=== PATIENT | female | born 2000 | race Hispanic/Latino ===

== ENCOUNTER 2018-11-12 13:07 | Emergency (ER) | payer OTHER ==
--- OUTSIDE RECORDS SUMMARY | 2018-11-12 13:10 | XMS REPORT ---
:2000 [facility] Address [address] [place] [address] Dr. Yo [address] [place] [id number] Care Team Providers Name Role Phone Unavailable Unavailable Unavailable Problems This patient has no known problems. Allergies, Adverse Reactions, Alerts This patient has no known allergies or adverse reactions. Medications This patient has no known medications.
[2018-11-12] MEDS ORDERED: NA CHLORIDE 0.9% 1,000 ML ONE (15:09)
[2018-11-12] MEDS ORDERED: ONDANSETRON 4 MG/2 ML VIAL ONE (15:09)
[2018-11-12] MEDS ORDERED: MORPHINE 2 MG/ML SYR ONE (15:09)
--- NOTE | 2018-11-12 15:09 | RAD REPORT ---
EXAM DESCRIPTION: CT - Head Brain Wo Cont - 11/12/2018 2:59 pm CLINICAL HISTORY: HEADACHE Drowsiness, blurry vision COMPARISON: HEAD BRAIN W O CONTRAST dated 07/20/2011 TECHNIQUE: All CT scans are performed using dose optimization technique as appropriate and may inclu de automated exposure control or mA/KV adjustment according to patient size. FINDINGS: No intracranial hemorrhage, hydrocephalus or extra-axial fluid collection.No areas of brai n edema or evidence of midline shift. Moderate opacification of the sphenoid sinus. The remainder of the paranasal sinuses and mastoids are clear. The calvarium is intact. IMPRESSION: No acute intracranial abnormality. Moderate sphenoid sinusitis.
[2018-11-12 15:43] LABS: Absolute Lymphocytes (CBC) 1.2 K/uL (0.7-4.9); Absolute Monocytes 0.9 K/uL (0.1-1.3); Absolute Neutrophil 9.6 K/uL (1.8-8.0); Basophils % 0.4 % (0-1.3); Hematocrit 34.5 % (36.0-45.0); MPV 9.1 fL (7.6-11.3); Monocytes % 7.4 % (3.3-12.3); RBC Red Blood Cell Count 4.02 M/uL (3.86-4.86)
[2018-11-12 16:00] LABS: ALT/SGPT 19 U/L (12-78); AST/SGOT 8 U/L (15-37); Albumin 2.9 g/dL (3.4-5.0); Alkaline Phosphatase 85 U/L (45-117); BUN Blood Urea Nitrogen 9 mg/dL (7-18); Bicarbonate 25 mmol/L (21-32); Bilirubin Total 0.2 mg/dL (0.2-1.0); Glucose Level 91 mg/dL (74-106); Potassium 3.5 mmol/L (3.5-5.1); Protein, Total 7.2 g/dL (6.4-8.2); Sodium Level 140 mmol/L (136-145)
--- NOTE | 2018-11-12 16:05 | ER ---
Nurse's Notes [facility] Name: Ayala Burnett Age: 18 yrs Sex: Female : 2000 Arrival Date: 11/12/2018 Time: 13:10 Bed 14 Private MD: Diagnosis: Headache; related conditions, unspecified, second trimester;Acute sinusitis Presentation: 11/12 13:41 Presenting complaint: Patient states: frontal headache radiating to back of head that aa5 began yesterday. Pt also reports intermittent dizziness and blurry vision. Pt states "I have a 1 year old so I don't get much sleep". Pt reports being 21 weeks . Transition of care: patient was not received from another setting of care. Onset of symptoms was November 2018. Risk Assessment: Do you want to hurt yourself or someone else? Patient reports no desire to harm self or others. Initial Sepsis Screen: Does the patient meet any 2 criteria? No. Patient's initial sepsis screen is negative. Does the patient have a suspected source of infection? No. Patient's initial sepsis screen is negative. Care prior to arrival: None. 13:41 Method Of Arrival: Ambulatory aa5 13:41 Acuity: RENAY 3 aa5 Triage Assessment: 15:00 Headache History: Denies prior headaches. General: Appears in no apparent distress. ls4 Behavior is calm, cooperative. Pain: Pain currently is 8 out of 10 on a pain scale. Pain began 1 day ago. Also complains of nausea. Neuro: Oriented to person, place, time, situation, Bleaching Supervisor are equal bilaterally Moves all extremities. Gait is steady, Speech is normal, Facial symmetry appears normal, Pupils are PERRLA, Reports dizziness. Respiratory: Airway is patent Respiratory effort is even, unlabored, Respiratory pattern is regular. GI: No deficits noted. : No deficits noted. Derm: No deficits noted. Musculoskeletal: No deficits noted. 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 - Social history:: Smoking status: Patient/guardian denies using tobacco. - Ebola Screening: : No symptoms or risks identified at this time. - Family history:: not pertinent. Screenin:47 Abuse screen: Denies threats or abuse. Denies injuries from another. Nutritional ls4 screening: No deficits noted. Tuberculosis screening: No symptoms or risk factors identified. Fall Risk None identified. Assessment: 13:50 General: Appears in no apparent distress. Behavior is calm, cooperative. ls4 13:50 Pain: Pain currently is 8 out of 10 on a pain scale. Noted to be smiling, playing with ls4 her chiled bouncing on lap. pt is in chair while is on hospital bed. pt in nad. Neuro: Level of Consciousness is awake, alert, obeys commands, Reports headache. Cardiovascular: No deficits noted. Respiratory: No deficits noted. GI: No deficits noted. : No deficits noted. Derm: No deficits noted. Musculoskeletal: No deficits noted. Vital Signs: 13:44 BP 115 / 66; Pulse 94; Resp 18 S; Temp 98.2(TE); Pulse Ox 100% on R/A; Weight 61.23 kg aa5 (R); Height 4 ft. 11 in. (149.86 cm) (R); Pain 8/10; 15:00 BP 112 / 70; Pulse 78; Resp 18; Temp 98.4(O); Pulse Ox 99% on R/A; Pain 3/10; ls4 16:44 BP 118 / 60; Pulse 74; Resp 16; Temp 98.8; Pulse Ox 99% on R/A; Pain 3/10; ls4 13:44 Body Mass Index 27.27 (61.23 kg, 149.86 cm) aa5 Vitals: 16:21 Heart Tones: 160. mh5 ED Course: 13:10 Patient arrived in ED. mr 13:41 Arm band placed on. aa5 13:43 Triage completed. aa5 14:00 Mani Capellan MD is Attending Physician. [facility] 14:51 Maryana Wang, ANNELISE is Primary Nurse. ls4 15:00 Patient has correct armband on for positive identification. Placed in gown. Bed in low ls4 position. Call light in reach. Side rails up X 1. Pulse ox on. NIBP on. 15:03 CT Head Brain wo Cont: shield In Process Unspecified. EDMS 15:47 Urine Culture Sent. 5 15:47 No provider procedures requiring assistance completed. ls4 16:04 Keagan Navarro MD is Referral Physician. [facility] 16:15 Inserted saline lock: 20 gauge in right. ls4 16:22 Urine Culture Sent. 5 16:47 IV discontinued, intact, bleeding controlled, No redness/swelling at site. Pressure ls4 dressing applied. Administered Medications: 15:24 Not Given (Patient Refused): morphine 2 mg IVP once ls4 15:25 Drug: Zofran 4 mg Route: IVP; Site: right antecubital; ls4 16:00 Follow up: Response: No adverse reaction; Marked relief of symptoms ls4 15:26 Drug: NS 0.9% 1000 ml Route: IV; Rate: 1 bolus; Site: right antecubital; ls4 16:20 Follow up: IV Status: Completed infusion; IV Intake: 1000ml ls4 16:14 Drug: Rocephin - (cefTRIAXone) 1 grams Route: IVPB; Infused Over: 10 mins; Site: right ls4 antecubital; 16:40 Follow up: Response: No adverse reaction; IV Status: Completed infusion; IV Intake: 83nhyh3 16:14 Drug: Augmentin 875 mg Route: PO; ls4 16:48 Follow up: Response: No adverse reaction ls4 Intake: 16:20 IV: 1000ml; Total: 1000ml. ls4 16:40 IV: 10ml; Total: 1010ml. ls4 Outcome: 16:04 Discharge ordered by . ghada 16:47 Discharged to home ambulatory, with family. ls4 16:47 Condition: stable 16:47 Discharge instructions given to patient, family, Instructed on discharge instructions, follow up and referral plans. no drinking with medication, no driving heavy equipment, medication usage, safety practices, Demonstrated understanding of instructions, medications, Prescriptions given X 4. 16:56 Patient left the ED. ls4 Signatures: Dispatcher [employer] EDMS Mani Capellan MD MD cha Rivera, Mary mr Calderon, Audri, ANNELISE RN Shameka Leung Lisa, RN RN ls4 Corrections: (The following items were deleted from the chart) 13:45 13:41 Presenting complaint: Patient states: frontal headache radiating to back of head aa5 that began yesterday. Pt also reports intermittent dizziness and blurry vision. Pt states "I have a 1 year old so I don't get much sleep" aa5 13:46 13:43 PMHx: None; aa5 aa5 16:51 16:14 Rocephin - (cefTRIAXone) 1 grams IVPB in right antecubital over 30 mins ls4 ls4
--- NOTE | 2018-11-12 16:05 | EDPHYS ---
Physician Documentation [facility] Name: Ayala Burnett Age: 18 yrs Sex: Female : 2000 Arrival Date: 11/12/2018 Time: 13:10 Bed 14 Private MD: ED Physician Mani Capellan HPI: 11/12 14:42 This 18 yrs old Female presents to ER via Ambulatory with complaints of ghada Headache, Blurred Vision, Dizziness, . 14:42 The patient complains of pain to the forehead, left side of the back of head, left side ghada of forehead, left temporal area, right side of the back of head, right temporal area and right side of forehead. The patient describes the headache as a pressure. Onset: The symptoms/episode began/occurred 2 day(s) ago. Associated signs and symptoms: The patient has no apparent associated signs or symptoms. Severity of symptoms: At its worst the pain was moderate, in the emergency department the pain has improved, mildly. Headache History:. The symptoms are alleviated by nothing. the symptoms are aggravated by nothing. The patient has not experienced similar symptoms in the past. 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 - Social history:: Smoking status: Patient/guardian denies using tobacco. - Ebola Screening: : No symptoms or risks identified at this time. - Family history:: not pertinent. ROS: 14:42 Constitutional: Negative for fever, chills, and weight loss, Eyes: Negative for injury, ghada pain, redness, and discharge, ENT: Negative for injury, pain, and discharge, Neck: Negative for injury, pain, and swelling, Cardiovascular: Negative for chest pain, palpitations, and edema, Respiratory: Negative for shortness of breath, cough, wheezing, and pleuritic chest pain, Abdomen/GI: Negative for abdominal pain, nausea, vomiting, diarrhea, and constipation, Back: Negative for injury and pain, : Negative for injury, bleeding, discharge, and swelling, MS/Extremity: Negative for injury and deformity, Skin: Negative for injury, rash, and discoloration, Psych: Negative for depression, anxiety, suicide ideation, homicidal ideation, and hallucinations, Allergy/Immunology: Negative for hives, rash, and allergies, Endocrine: Negative for neck swelling, polydipsia, polyuria, polyphagia, and marked weight changes, Hematologic/Lymphatic: Negative for swollen nodes, abnormal bleeding, and unusual bruising. 14:42 Neuro: Positive for headache. Exam: 14:42 Constitutional: This is a well developed, well nourished patient who is awake, alert, ghada and in no acute distress. Head/Face: Normocephalic, atraumatic. Eyes: Pupils equal round and reactive to light, extra-ocular motions intact. Lids and lashes normal. Conjunctiva and sclera are non-icteric and not injected. Cornea within normal limits. Periorbital areas with no swelling, redness, or edema. ENT: Nares patent. No nasal discharge, no septal abnormalities noted. Tympanic membranes are normal and external auditory canals are clear. Oropharynx with no redness, swelling, or masses, exudates, or evidence of obstruction, uvula midline. Mucous membranes moist. Neck: Trachea midline, no thyromegaly or masses palpated, and no cervical lymphadenopathy. Supple, full range of motion without nuchal rigidity, or vertebral point tenderness. No Meningismus. Chest/axilla: Normal chest wall appearance and motion. Nontender with no deformity. No lesions are appreciated. Cardiovascular: Regular rate and rhythm with a normal S1 and S2. No gallops, murmurs, or rubs. Normal PMI, no JVD. No pulse deficits. Respiratory: Lungs have equal breath sounds bilaterally, clear to auscultation and percussion. No rales, rhonchi or wheezes noted. No increased work of breathing, no retractions or nasal flaring. Abdomen/GI: Soft, non-tender, with normal bowel sounds. No distension or tympany. No guarding or rebound. No evidence of tenderness throughout. Back: No spinal tenderness. No costovertebral tenderness. Full range of motion. Skin: Warm, dry with normal turgor. Normal color with no rashes, no lesions, and no evidence of cellulitis. MS/ Extremity: Pulses equal, no cyanosis. Neurovascular intact. Full, normal range of motion. Neuro: Awake and alert, GCS 15, oriented to person, place, time, and situation. Cranial nerves II-XII grossly intact. Motor strength 5/5 in all extremities. Sensory grossly intact. Cerebellar exam normal. Normal gait. Psych: Awake, alert, with orientation to person, place and time. Behavior, mood, and affect are within normal limits. Vital Signs: 13:44 BP 115 / 66; Pulse 94; Resp 18 S; Temp 98.2(TE); Pulse Ox 100% on R/A; Weight 61.23 kg aa5 (R); Height 4 ft. 11 in. (149.86 cm) (R); Pain 8/10; 15:00 BP 112 / 70; Pulse 78; Resp 18; Temp 98.4(O); Pulse Ox 99% on R/A; Pain 3/10; ls4 16:44 BP 118 / 60; Pulse 74; Resp 16; Temp 98.8; Pulse Ox 99% on R/A; Pain 3/10; ls4 13:44 Body Mass Index 27.27 (61.23 kg, 149.86 cm) aa5 MDM: 14:00 Patient medically screened. [facility] 14:45 Data reviewed: vital signs, nurses notes, lab test result(s), radiologic studies, CT ghada scan. 11/12 14:42 Order name: CBC with Diff; Complete Time: 15:53 [facility] 11/12 14:42 Order name: Comprehensive Metabolic Panel; Complete Time: 16:04 [facility] 11/12 14:42 Order name: CT Head Brain wo Cont: shield; Complete Time: 15:23 [facility] 11/12 14:42 Order name: Urine Culture [facility] 11/12 16:19 Order name: Urine Dipstick--Ancillary (enter results) 11/12 16:19 Order name: Urine --Ancillary (enter results) 11/12 14:42 Order name: Urine Dipstick-Ancillary (obtain specimen); Complete Time: 15:47 [facility] 11/12 14:42 Order name: FHT's; Complete Time: 16:15 [facility] Administered Medications: 15:24 Not Given (Patient Refused): morphine 2 mg IVP once ls4 15:25 Drug: Zofran 4 mg Route: IVP; Site: right antecubital; ls4 16:00 Follow up: Response: No adverse reaction; Marked relief of symptoms ls4 15:26 Drug: NS 0.9% 1000 ml Route: IV; Rate: 1 bolus; Site: right antecubital; ls4 16:20 Follow up: IV Status: Completed infusion; IV Intake: 1000ml ls4 16:14 Drug: Rocephin - (cefTRIAXone) 1 grams Route: IVPB; Infused Over: 10 mins; Site: right ls4 antecubital; 16:40 Follow up: Response: No adverse reaction; IV Status: Completed infusion; IV Intake: [id number] 16:14 Drug: Augmentin 875 mg Route: PO; ls4 16:48 Follow up: Response: No adverse reaction ls4 Disposition: 11/12/18 16:04 Discharged to Home. Impression: Headache, related conditions, unspecified, second trimester, Acute sinusitis. - Condition is Stable. - Discharge Instructions: General Headache Without Cause, Sinusitis, Adult, Sinusitis, Adult, Noej-yl-Irog, General Headache Without Cause, Jhxw-jm-Kefy, Second Trimester of , Wgsy-vu-Kxhb. - Prescriptions for Diclegis 10- 10 mg Oral tablet,delayed release (DR/EC) - take 1 tablet by ORAL route 3 times per day and 2 tablets at bedtime; 45 tablet. Vitamin 27- 0.8 mg Oral Tablet - take 1 tablet by ORAL route once daily; 30 tablet. Tylenol- Codeine #3 300-30 mg Oral Tablet - take 2 tablets by ORAL route every 6 hours As needed; 20 tablet. Augmentin 875- 125 mg Oral Tablet - take 1 tablet by ORAL route every 12 hours for 10 days; 20 tablet. - Medication Reconciliation Form, Thank You Letter, Antibiotic Education, Prescription Opioid Use form. - Follow up: Private Physician; When: 2 - 3 days; Reason: Recheck today's complaints, Continuance of care, Re-evaluation by your physician. Follow up: Keagan Navarro; When: 2 - 3 days; Reason: Recheck today's complaints, Re-evaluation by your physician. - Problem is new. - Symptoms have improved. Signatures: Dispatcher [employer] Mani Nichole MD MD cha Calderon, Audri, RN RN aa5 Maryana Wang RN RN ls4 Corrections: (The following items were deleted from the chart) 13:46 13:43 PMHx: None; anita howard 16:56 16:04 11/12/2018 16:04 Discharged to Home. Impression: Headache; related ls4 conditions, unspecified, second trimester; Acute sinusitis. Condition is Stable. Discharge Instructions: General Headache Without Cause, General Headache Without Cause, Aklz-xw-Nceh, Second Trimester of , Edny-xm-Aqfx, Sinusitis, Adult, Sinusitis, Adult, Bpdj-ok-Ddec. Prescriptions for Diclegis 10-10 mg Oral tablet,delayed release (DR/EC) - take 1 tablet by ORAL route 3 times per day and 2 tablets at bedtime; 45 tablet, Vitamin 27-0.8 mg Oral Tablet - take 1 tablet by ORAL route once daily; 30 tablet, Tylenol-Codeine #3 300-30 mg Oral Tablet - take 2 tablets by ORAL route every 6 hours As needed; 20 tablet, Augmentin 875-125 mg Oral Tablet - take 1 tablet by ORAL route every 12 hours for 10 days; 20 tablet. and Forms are Medication Reconciliation Form, Thank You Letter, Antibiotic Education, Prescription Opioid Use. Follow up: Private Physician; When: 2 - 3 days; Reason: Recheck today's complaints, Continuance of care, Re-evaluation by your physician. Follow up: Keagan Navarro; When: 2 - 3 days; Reason: Recheck today's complaints, Re-evaluation by your physician. Problem is new. Symptoms have improved. ghada
[2018-11-12] MEDS ORDERED: AMOX/K CLAV 875 MG TAB ONE (16:21)
[2018-11-12] MEDS ORDERED: CEFTRIAXONE/SWI 1gm 1 GM/10 ML SYR ONE (16:21)
[2018-11-12 17:35] VITALS: O2SAT 99
[2018-11-12 17:46] VITALS: BP 118/60; TEMP 98.8
[2018-11-12 20:35] LABS: Urine Blood NEGATIVE (NEG); Urine Glucose NEGATIVE (NEG); Urine Protein NEGATIVE (NEG); Urine pH 7.5 (5.0-7.0)
== END 2018-11-12 16:56 | disposition home or self-care (01) ==
LOC: ER 13:07
DX: O26.892 Other specified pregnancy related conditions, second trimester (principal); R51 Headache; J01.30 Acute sphenoidal sinusitis, unspecified; Z3A.00 Weeks of gestation of pregnancy not specified
CPT/HCPCS: 36415; 70450; 80053; 81003; 81025; 85025; 87086; 87088; 96361; 96365; 96375; 99284; J0696; J2270; J2405; J7030

== ENCOUNTER 2019-03-15 10:43 | Inpatient (IN) | payer OTHER ==
--- OUTSIDE RECORDS SUMMARY | 2019-03-15 10:45 | XMS REPORT ---
:2000 [facility] Address [address] [place] [address] Dr. Díaz. [address] [place] [address] Care Team Providers Name Role Phone Unavailable Unavailable Unavailable Problems This patient has no known problems. Allergies, Adverse Reactions, Alerts This patient has no known allergies or adverse reactions. Medications This patient has no known medications.
[2019-03-15] MEDS ORDERED: PROMETHAZINE 25 MG/ML VIAL IM PRN (12:44)
[2019-03-15] MEDS ORDERED: DIPHENHYDRAMINE 25 MG TAB/CAP PO PRN ×2 (12:44→18:43)
[2019-03-15] MEDS ORDERED: MAGNES/ALUMIN/SIMET 30ML UCUP PO PRN (12:44)
[2019-03-15] MEDS ORDERED: ZOLPIDEM TARTRATE 5 MG TABLET PO PRN (12:44)
[2019-03-15] MEDS ORDERED: MEPERIDINE HCL 25 MG/0.5 ML IV PRN (12:44)
[2019-03-15] MEDS ORDERED: METHYLERGONOVINE 0.2MG/ML AMP IM PRN (12:44)
[2019-03-15] MEDS ORDERED: BUTORPHANOL 1 MG/ML INJ IV PRN (12:44)
[2019-03-15] MEDS ORDERED: Ringers Lactate 1,000 ML IV PRN (12:44)
[2019-03-15] MEDS ORDERED: MIDAZOLAM HCL 2 MG/2 ML INJ IV PRN (12:44)
[2019-03-15] MEDS ORDERED: OXYTOCIN/LR 20 UNIT/1,000 ML BAG IV SCH ×2 (13:00→19:00)
[2019-03-15] MEDS ORDERED: Ringers Lactate 1,000 ML IV SCH (13:00)
[2019-03-15 13:17] LABS: RPR Titer ND
[2019-03-15 13:21] LABS: Absolute Lymphocytes (CBC) 1.1 K/uL (0.7-4.9); Absolute Monocytes 0.6 K/uL (0.1-1.3); Absolute Neutrophil 7.7 K/uL (1.8-8.0); Basophils % 0.7 % (0-1.3); Eosinophils % 0.4 % (0-4.4); Hematocrit 33.3 % (36.0-45.0); Lymphocytes % 11.8 % (15.3-44.8); MPV 9.2 fL (7.6-11.3); Monocytes % 6.5 % (3.3-12.3); RBC Red Blood Cell Count 4.33 M/uL (3.86-4.86)
--- NOTE | 2019-03-15 13:33 | PREOPHP ---
Date of Admission: 03/15/2019 Maryana Mark is a 18-year-old, 2, para 1, scheduled for induction tomorrow. Came into our facil ity in early labor. She is now 3.5 cm, 70% effaced, vertex -1 station, well applied. FHT is normal, reactive. Vital signs all stable. She is Rh positive, immune to Rubella. Negative beta strep scre en. We will start IV and start light Pitocin augmentation. Rupture of membranes, and expect deliver y sometime later this afternoon or this evening. Full labor talk given. KALYAN/MADINA Voice ID: [id number]
[2019-03-15 16:12] LABS: Urine Appearance CLEAR; Urine Bilirubin NEGATIVE (NEG); Urine Blood 2+ (NEG); Urine Color YELLOW; Urine Glucose NEGATIVE (NEG); Urine Protein NEGATIVE (NEG)
[2019-03-15 16:19] LABS: Urine Microscopic Reflex ORDER UMIC
[2019-03-15 16:22] VITALS: BMI 32.3
[2019-03-15 16:47] LABS: Urine Bacteria <20 /HPF (<20); Urine Culture Reflex Order REFLEXED; Urine RBC NONE SEEN /HPF (NONE SEEN)
[2019-03-15] MEDS ORDERED: FENTANYL CITR 100 MCG/2 ML IV ONE (16:49)
[2019-03-15] MEDS ORDERED: ROPIVACAINE HCL 100 ML IV PRN (16:50)
[2019-03-15] MEDS ORDERED: ROPIVACAINE HCL 0.2% 20ML AMP SQ ONE (16:50)
[2019-03-15] MEDS ORDERED: ROPIVACAINE HCL 100 ML IV ONE (17:08)
[2019-03-15] MEDS ORDERED: CARBOPROST TROME 250 MCG/ML IM ONE (17:48)
[2019-03-15] MEDS ORDERED: METHYLERGONOVINE 0.2MG/ML AMP IM ONE (17:48)
[2019-03-15] MEDS ORDERED: LIDOCAINE 1% MPF 30 ML VIAL ONE (17:48)
[2019-03-15] MEDS ORDERED: DOCUSATE NA/SENNA CONC 1 TAB PO PRN (18:43)
[2019-03-15] MEDS ORDERED: BISACODYL 10 MG RECTAL SUPP RECT PRN (18:43)
[2019-03-15] MEDS ORDERED: ACETAMINOPHEN 500 MG TAB PO PRN (18:43)
[2019-03-15] MEDS ORDERED: Oxycodone HCl/Acetaminophen 1 TAB TAB PO PRN ×2 (18:43)
[2019-03-15 22:18] LABS: RPR (Rapid Plasma Reagin) NON-REACT (NON-REACT)
[2019-03-16] MEDS: IBUPROFEN 200 MG TAB PO PRN ×3 (02:43→23:24)
--- NOTE | 2019-03-16 03:26 | OP ---
Surgeon: Abdirahman Russell MD This is a 18-year-old, 2, para 1, 38 weeks 6 days, scheduled for induction tomorrow. Came in early labor. 3.5 cm on admission. Started on light Pitocin augmentation at approximately 3.5 to 4 cm, rupture of membranes, clear fluid. The patient went to a very active labor pattern. When she re ached approximately 7.5 cm, requested and received epidural anesthesia which was done and basically s he cannot feel contractions thereafter. The epidural maintenance dose was changed from 8 to 6. Thomas tor was increased and she went to complete. Second stage for about 20 to 30 minutes. Vacuum assiste d delivery of an estimated 8-pound male, Apgars 6 and 8, no episiotomy and no laceration. Martín alfonso elivery of the placenta, which was inspected and noted to be intact and normal. 350 cc or less blood loss. Tolerated all procedures well. Final Diagnoses: Term intrauterine , 38 weeks 6 days. Vaginal delivery. Vacuum assisted e pidural anesthesia. KALYAN/MADINA Voice ID: [id number] Report ID: [id number]
--- NOTE | 2019-03-16 08:28 | PN ---
Lalitha every 2 minutes. Baby looks good. She is now 7 cm, 90% to 100% effaced, 0 station. Req uesting epidural, but she may not have time to get it. She is being hydrated, everything is in order and ready, but we will see if the anesthesiologist gets here first or the baby does. KALYAN/MADINA Voice ID: [id number] Report ID: [id number]
--- NOTE | 2019-03-16 08:37 | PN ---
The patient now has her IV and she is on Pitocin. Lalitha every 2-3 minutes. She is now 4 cm, 7 0% effaced, vertex, -1 station. Ruptured membranes, clear fluid. Anticipate more rapid progress as soon as contractions get a little bit firmer. KALYAN/MADINA Voice ID: [id number] Report ID: [id number]
--- NOTE | 2019-03-17 03:25 | DS ---
Hospital Course: Ms. Burnett, 18-year-old, 2, para 1, 38 weeks and 6 days, scheduled for induc tion today, but came in labor yesterday, received epidural anesthesia. Delivered an 8-pound and 5-ou nce male , Apgars 6 and 8, vacuum-assisted delivery. No episiotomy. No lacerations. Delivery of the placenta, which was inspected and noted to be intact and normal. Less than 350 cc blood loss . Rh positive, immune to Rubella. Negative beta strep screen. ; afebrile, ambulating, vo iding. Lochia is normal. She has no complaints or problems. Will be dismissed later today. Tramad ol given for analgesia, although she may elect to take Motrin instead. She has had her Tdap immuniza tion during her . Final Diagnoses: Intrauterine gestation, 38 weeks and 6 days. Vaginal delivery, vacuum assisted. E pidural anesthesia. KALYAN/MADINA Voice ID: [id number] Report ID: [id number]
[2019-03-17 04:17] VITALS: BP 89/43; TEMP 97.6
--- NOTE | 2019-03-17 12:59 | PN ---
Apparently stayed overnight, did not want to go home yesterday. This morning, she says she is wantin g to go home. She has no questions or problems. Doing quite well. No change from yesterday. KALYAN/MADINA Voice ID: [id number] Report ID: [id number]
[2019-03-18 18:20] LABS: HBsAG Nonreactive (Nonreactive)
== END 2019-03-17 08:40 | disposition home or self-care (01) | DRG 807 ==
LOC: L&D 10:43 → 2ND-WC 12:43
PROVIDERS: ADMIT Specialist; ATTEND Specialist
PROC: 10D07Z6 Extraction of Products of Conception, Vacuum, Via Natural or Artificial Opening (ICD-10-PCS; principal; 2019-03-15)
DX: O80 Encounter for full-term uncomplicated delivery (principal); Z37.0 Single live birth; Z3A.38 38 weeks gestation of pregnancy
CPT/HCPCS: 36415; 81003; 81015; 85025; 86592; 86901; 87086; 87088; 87340; J2210; J2590; J2795; J3010

== ENCOUNTER 2022-01-04 01:30 | Emergency (ER) | payer OTHER ==
--- OUTSIDE RECORDS SUMMARY | 2022-01-04 01:34 | XMS REPORT | Continuity of Care Document ---
:2000 Author Organization [facility] t Address [address] [place] [address] [address] [place] [address] Care Team Providers Name Role Phone DEVON BRITO Primary Care Physician Unavailable Drew Smith Attending Clinician Drew BRITO Attending Clinician Unavailable Payers Payer Name Policy Type Policy Number Effective Date Expiration Date S ource Advance Directives Directive Decision Effective Termination Comments Source Date Date Healthcare Agents on N/A [facility] FileNameRelationEn[facility] Health [facility] Agent Medical RelationshipCommunicationAdellaida Branch RosaotherHealth Care [phone] (Mobile) Irwin FrenchpouseChi [facility] [phone] (Mobile) Problems Condition Condition Condition Status Onset Resolution Last Treating Co mments Source Name Details Category Date Date Treatment Clinician Date Encounter Encounter Disease Active Uni vers for for 2-14 ity of surve[place] of 00 Medical other other Branch contracept contracept karen karen IUD IUD Disease Active Univers (intrauter (intrauter 2-14 it y of ine ine 00:00: [place] device) in device) in [address] Branch Encounter Encounter Disease Active Uni vers for IUD for IUD 2-14 ity of removal removal 00:00: [address] BMI BMI Disease Active Univers 29.0-29.9, 29.0-29.9, 2-14 it y of adult adult 00:00: [address] Rubella Rubella Disease Active 2017-10 Overview: [facility] ers non-immune non-immune 10-14 Formattin ity of status, status, 00:00: g of this [place] antepartum antepartum 00 note Me dical might be Branch different from the original. Address in postpartu m. Allergies, Adverse Reactions, Alerts Allergy Allergy Status Severity Reaction(s) Onset Inactive Treating Comm ents Source Name Type Date Date Clinician NO KNOWN Drug Active Univers ALLERGIE Class ity of S [facility] Social History Social Habit Start Date Stop Date Quantity Comments Source Exposure to Not sure [facility] SARS-CoV-2 [facility] (event) Branch Tobacco use and 2021-11-23 2021-11-23 Never used Universit y of exposure 00:00:00 00:00:00 [facility] Alcohol intake 2021-11-23 2021-11-23 Current University of 00:00:00 00:00:00 non-drinker of [facility] alcohol Branch (finding) Sex Assigned At [birth year] Universit y of 00:00:00 00:00:00 [facility] Smoking Status Start Date Stop Date Source Current some day smoker 2021-11-23 00:00:00 [facility] Medications Ordered Filled Start Stop Current Ordering Indication Dosage Frequency Signature Comments Components Source Medication Medication Date Date Medication? Clinician (SIG) Name Name norgestimat Yes [id number] 1{tbl} Take 1 Univers e-ethinyl 2-15 tablet by ity o f estradioL 00:00: mouth [place] 0.18/0.215/ 00 daily. Medica l 0.25 mg-25 Branch mcg tablet 2017-10 Yes 1{packe Take 1 Univ ers vit 1-02 t} Packet by ity of 33-iron-fol 00:00: mouth [place] ic-dha 00 daily. Medical (SELECT-OB Branch + DHA) 29 mg iron-1 mg -250 mg combo pack Vital Signs Vital Name Observation Time Observation Value Comments Source Systolic blood 2021-11-24 19:58:00 134 mm[Hg] Univer sity pressure [facility] Diastolic blood 2021-11-24 19:58:00 79 mm[Hg] [facility] 2021-11-24 19:58:00 100 /min [facility] Body temperature 2021-11-24 19:58:00 36.06 Chinyere [facility] Respiratory rate 2021-11-24 19:58:00 20 /min [facility] Body height 2021-11-24 19:58:00 149.9 cm [facility] Body weight 2021-11-24 19:58:00 65.908 kg [facility] BMI 2021-11-24 19:58:00 29.35 kg/m2 [facility] Procedures Procedure Date / Time Performed Performing Clinician Sourc e POCT TEST 2021-11-24 00:00:00 [facility]o [facility] Encounters Start End Encounter Admission Attending Care Care Encounter Source Date/Time Date/Time Type Type Clinicians Facility Department ID 2021-11-24 2021-11-24 Office REKHA Brito [id number] Univers 13:30:00 14:58:08 Visit Devon Russell DIRECTOR OF SCIENTIFIC RESEARCH [id number] ity [facility] [id number] Coy as MATERNAL [phone] Med ical & CHILD [address] [place] [address] 2021-11-24 2021-11-24 Outpatient Drew BRITO [facility] [id number] Univers 13:30:00 14:58:08 DEVON ray [facility] 2021-11-23 2021-11-23 Outpatient Drew BRITO [facility] [id number] Univers 15:00:00 15:37:11 DEVON otoole f [facility] Results Test Description Test Time Test Comments Results Result Comments Source POCT TEST 2021-11-24 20:09:00 Test Item Value Reference Range Interpretation Comme nts POCT PREG (test code = 1605) Negative On board controls acceptable with C Line (test code = 3574) Yes POCT PREG LOT # (test code = 3575) POCT PREG TEST DATE (test code = 3576) [facility]
[2022-01-04 01:56] LABS: Urine Blood 2+ (Negative); Urine Glucose Negative (Negative); Urine Protein Negative (Negative)
[2022-01-04 03:10] LABS: Hematocrit 40.1 % (36.0-45.0); Lymphocytes % 31.6 % (15.3-44.8); MPV 9.4 fL (7.6-11.3); RBC Red Blood Cell Count 4.82 M/uL (3.86-4.86)
[2022-01-04 03:24] LABS: BUN Blood Urea Nitrogen 12 mg/dL (7-18); Bicarbonate 25 mmol/L (21-32); Glucose Level 96 mg/dL (74-106); Sodium Level 137 mmol/L (136-145)
[2022-01-04 03:25] LABS: Potassium 3.6 mmol/L (3.5-5.1)
[2022-01-04 04:45] LABS: HCG, Quantitative 14 mIU/mL (1-3)
--- NOTE | 2022-01-04 05:25 | EDPHYS ---
Physician Documentation [facility] Name: Ayala Burnett Age: 21 yrs Sex: Female : 2000 Arrival Date: 01/04/2022 Time: 01:34 Bed 19 Private MD: WEN Physician Ilan Curry HPI: 01/04 02:25 This 21 yrs old Female presents to ER via Ambulatory with complaints of mh7 Vaginal Bleeding. 02:25 The patient presents with vaginal bleeding that is light. Onset: The symptoms/episode mh7 began/occurred last night. Modifying factors: The symptoms are alleviated by nothing, the symptoms are aggravated by nothing. Associated signs and symptoms: Pertinent negatives: constipation, diarrhea, dyspareunia, dysuria, fever, hematuria, nausea, urinary frequency, vaginal discharge, vomiting. Severity of symptoms: At their worst the symptoms were moderate, last night, in the emergency department the symptoms have improved, moderately. States that she is 5-6 weeks . Reports having a positive test at home about 2 weeks ago.. 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 - Social history:: Smoking status: Patient denies any tobacco usage or history of. ROS: 02:25 Constitutional: Negative for fever, chills, and weight loss, Eyes: Negative for injury, mh7 pain, redness, and discharge, ENT: Negative for injury, pain, and discharge, Neck: Negative for injury, pain, and swelling, Cardiovascular: Negative for chest pain, palpitations, and edema, Respiratory: Negative for shortness of breath, cough, wheezing, and pleuritic chest pain, MS/Extremity: Negative for injury and deformity, Skin: Negative for injury, rash, and discoloration, Neuro: Negative for headache, weakness, numbness, tingling, and seizure, Psych: Negative for depression, anxiety, suicide ideation, homicidal ideation, and hallucinations, Allergy/Immunology: Negative for hives, rash, and allergies, Endocrine: Negative for neck swelling, polydipsia, polyuria, polyphagia, and marked weight changes, Hematologic/Lymphatic: Negative for swollen nodes, abnormal bleeding, and unusual bruising. Exam: 02:25 Constitutional: This is a well developed, well nourished patient who is awake, alert, mh7 and in no acute distress. Head/Face: Normocephalic, atraumatic. Eyes: Pupils equal round and reactive to light, extra-ocular motions intact. Lids and lashes normal. Conjunctiva and sclera are non-icteric and not injected. Cornea within normal limits. Periorbital areas with no swelling, redness, or edema. Neck: Trachea midline, no thyromegaly or masses palpated, and no cervical lymphadenopathy. Supple, full range of motion without nuchal rigidity, or vertebral point tenderness. No Meningismus. Chest/axilla: Normal chest wall appearance and motion. Nontender with no deformity. No lesions are appreciated. Cardiovascular: Regular rate and rhythm with a normal S1 and S2. No gallops, murmurs, or rubs. Normal PMI, no JVD. No pulse deficits. Respiratory: Lungs have equal breath sounds bilaterally, clear to auscultation and percussion. No rales, rhonchi or wheezes noted. No increased work of breathing, no retractions or nasal flaring. Abdomen/GI: Soft, non-tender, with normal bowel sounds. No distension or tympany. No guarding or rebound. No evidence of tenderness throughout. Back: No spinal tenderness. No costovertebral tenderness. Full range of motion. Skin: Warm, dry with normal turgor. Normal color with no rashes, no lesions, and no evidence of cellulitis. MS/ Extremity: Pulses equal, no cyanosis. Neurovascular intact. Full, normal range of motion. Neuro: Awake and alert, GCS 15, oriented to person, place, time, and situation. Cranial nerves II-XII grossly intact. Motor strength 5/5 in all extremities. Sensory grossly intact. Cerebellar exam normal. Normal gait. Psych: Awake, alert, with orientation to person, place and time. Behavior, mood, and affect are within normal limits. 02:25 : CVA tenderness, is absent, Pelvic Exam: External exam: is normal, Speculum exam: no bleeding is noted, blood clots in vaginal vault, no cervicitis, os that is closed, no tissue in cervix is seen, no tissue in vagina is seen, bimanual exam reveals normal findings, normal sized uterus, no uterine tenderness, no adnexa tenderness or masses bilaterally, discharge, is not appreciated, the nurse was present for the exam, Bladder: is normal, Rectal exam: is refused by patient or guardian. Vital Signs: 01:46 BP 126 / 84; Pulse 78; Resp 16; Temp 98.5(O); Pulse Ox 100% on R/A; Weight 68.04 kg lp1 (R); Height 4 ft. 11 in. (149.86 cm); 04:38 BP 118 / 86; Pulse 72; Resp 17; Pulse Ox 100% on R/A; kd3 05:45 BP 125 / 84; Pulse 71; Resp 16; Pulse Ox 99% on R/A; kd3 01:46 Body Mass Index 30.30 (68.04 kg, 149.86 cm) lp1 MDM: 05:23 Differential diagnosis: ectopic , menorrhea, threatened Ab, inevitable Ab, mh7 complete Ab, retained Ab, septic Ab, missed Ab, urinary tract infection. Data reviewed: vital signs, nurses notes, lab test result(s), Beta HCG: CBC, electrolytes, urinalysis, radiologic studies, ultrasound. Data interpreted: Pulse oximetry: on room air is 100 %. Interpretation: normal. Counseling: I had a detailed discussion with the patient and/or guardian regarding: the historical points, exam findings, and any diagnostic results supporting the discharge/admit diagnosis, lab results, radiology results, the need for outpatient follow up, an OB/Gyne specialist, to return to the emergency department if symptoms worsen or persist or if there are any questions or concerns that arise at home. Response to treatment: the patient's symptoms have resolved after treatment, the patient's blood pressure is in an acceptable range, mental status has returned to baseline, the patient no longer shows bradycardia, the patient is not short of breath, the patient is not tachycardic, the patient's pain is gone, the patient's temperature has normalized. 05:25 Patient medically screened. mh7 01/04 01:56 Order name: Urine Dipstick-Ancillary; Complete Time: 02:05 EDMS 01/04 02:00 Order name: Urine --Ancillary (enter results); Complete Time: 02:57 lp1 01/04 02:21 Order name: Abo/rh Typing; Complete Time: 04:14 [facility] 01/04 02:21 Order name: Basic Metabolic Panel; Complete Time: 04:47 7 01/04 02:21 Order name: CBC with Diff; Complete Time: 04:14 7 01/04 02:21 Order name: Test, Serum; Complete Time: 04:14 7 01/04 01:49 Order name: Urine Dipstick-Ancillary (obtain specimen); Complete Time: 02:00 lp1 01/04 01:49 Order name: Urine Test (obtain specimen); Complete Time: 02:00 1 01/04 02:21 Order name: IV Saline Lock; Complete Time: 02:39 7 01/04 02:21 Order name: Labs collected and sent; Complete Time: 02:39 [facility] 01/04 02:21 Order name: NPO; Complete Time: 02:39 [facility] 01/04 04:15 Order name: US Transvaginal Ob [facility] 01/04 04:26 Order name: HCG, Quantitative; Complete Time: 04:47 EDMS Administered Medications: No medications were administered Disposition Summary: 01/04/22 05:25 Discharge Ordered Location: Home [facility] Problem: new 7 Symptoms: have improved mh7 Condition: Stable mh7 Diagnosis - Threatened 7 Followup: 7 - With: Private Physician - When: 1 - 2 days - Reason: Worsening of condition, Recheck today's complaints, Continuance of care, Re-evaluation by your physician Followup: 7 - With: Abdirahman Russell MD - When: 1 - 2 days - Reason: Worsening of condition, Recheck today's complaints Discharge Instructions: - Discharge Summary Sheet 7 - Threatened Miscarriage, [id number] 7 - Form - Excuse from Work, School, or Physical Activity 7 Forms: - Medication Reconciliation Form 7 - Thank You Letter mh7 - Antibiotic Education mh7 - Prescription Opioid Use mh7 - Family Work Release 3 Signatures: Dispatcher [employer] EDJennifer Weems RN RN lp1 Ilan Curry MD MD 7 Corrections: (The following items were deleted from the chart) 04:26 04:15 QUANTITATIVE HCG+C.LAB.BRZ ordered. EDMS EDMS
--- NOTE | 2022-01-04 05:25 | ER ---
Nurse's Notes [facility] Name: Ayala Burnett Age: 21 yrs Sex: Female : 2000 Arrival Date: 01/04/2022 Time: 01:34 Bed 19 Private MD: Diagnosis: Threatened Presentation: 01/04 01:46 Chief complaint: Patient states: Vaginal bleeding that began about 1.5hr ago, reports lp1 pinkish brown in color with lower pelvic cramping and low back pain; reports intercourse tonight about 1999. Coronavirus screen: At this time, the client does not indicate any symptoms associated with coronavirus-19. Ebola Screen: No symptoms or risks identified at this time. Initial Sepsis Screen: Does the patient meet any 2 criteria? No. Patient's initial sepsis screen is negative. Does the patient have a suspected source of infection? No. Patient's initial sepsis screen is negative. Risk Assessment: Do you want to hurt yourself or someone else? Patient reports no desire to harm self or others. Onset of symptoms was January 04, 2022. 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 - Social history:: Smoking status: Patient denies any tobacco usage or history of. Screenin:49 Abuse screen: Denies threats or abuse. Denies injuries from another. Nutritional lp1 screening: No deficits noted. Tuberculosis screening: No symptoms or risk factors identified. Fall Risk None identified. Assessment: 04:35 General: Appears in no apparent distress. Behavior is calm, cooperative, appropriate kd3 for age. Pain: Denies pain. : Urine is clear, Reports vaginal bleeding that is bright red. 04:36 Reassessment: Patient and/or family updated on plan of care and expected duration. Pain kd3 level reassessed. Patient is alert, oriented x 3, equal unlabored respirations, skin warm/dry/pink. ultrasound at bedside. Vital Signs: 01:46 BP 126 / 84; Pulse 78; Resp 16; Temp 98.5(O); Pulse Ox 100% on R/A; Weight 68.04 kg lp1 (R); Height 4 ft. 11 in. (149.86 cm); 04:38 BP 118 / 86; Pulse 72; Resp 17; Pulse Ox 100% on R/A; kd3 05:45 BP 125 / 84; Pulse 71; Resp 16; Pulse Ox 99% on R/A; kd3 01:46 Body Mass Index 30.30 (68.04 kg, 149.86 cm) lp1 ED Course: 01:34 Patient arrived in ED. ja2 01:48 Triage completed. lp1 01:49 Arm band placed on. lp1 02:04 Ilan Curry MD is Attending Physician. 7 02:18 Gilda Nguyen, ANNELISE is Primary Nurse. kd3 04:35 Patient has correct armband on for positive identification. kd3 04:55 US Transvaginal Ob In Process Unspecified. EDMS 05:25 Abdirahman Russell MD is Referral Physician. 7 Administered Medications: No medications were administered Outcome: 05:25 Discharge ordered by . 7 05:46 Patient left the ED. kd3 Signatures: Dispatcher [employer] EDMS Jennifer Jerry RN RN 1 Ilan Curry MD MD [facility] Yashira [place] [facility] Gilda Nguyen RN RN kd3 Corrections: (The following items were deleted from the chart) 02:00 01:46 BP 126 / 84; Pulse 78bpm; Resp 16bpm; Pulse Ox 100% RA; 68.04 kg Reported; Height lp1 4 ft. 11 in.; BMI: 30.3; lp1
[2022-01-04 06:14] VITALS: TEMP 98.5
[2022-01-04 06:17] VITALS: BP 125/84; O2SAT 99
--- NOTE | 2022-01-04 12:01 | RAD REPORT ---
EXAM DESCRIPTION: US - Transvaginal OB - 01/04/2022 5:30 am CLINICAL HISTORY: 21 years Female, VAGINAL BLEEDING COMPARISON: None. TECHNIQUE: Complete first trimester obstetrical ultrasound obtained with transvaginal vaginal imagin g. Uterus: The uterus measures 8.3 x 4.6 x 5.2 cm. Endometrial thickness of 0.7 cm. No myometrial abnorm alities. Gestational sac: Not identified. pole: Not identified. heart motion: Not identified. Yolk sac: Not identified. Placenta: Not identified. Right ovary: The right ovary measures 2.7 x 1.7 x 2.4 cm Left ovary: The left ovary measures 2.6 x 1.0 x 1.5 cm Adnexa: No adnexal masses. Free fluid: No free fluid. Duplex imaging: Color and spectral Doppler imaging demonstrates blood flow and ovaries. IMPRESSION: 1. No intrauterine identified. Differential considerations include early sandro l , miscarriage, and ectopic . Close continued clinical, laboratory, and sonographi c follow-up recommended. ElectronicElly signed by: Hira Jain 01/04/2022 5:14 AM CDT Due to temporary technical issues with the PACS/Fluency reporting system, reports are being signed by the in house radiologist without review as a courtesy to ensure prompt reporting. The interpreting r adiologist is fully responsible for the content of the report.
== END 2022-01-04 05:46 | disposition home or self-care (01) ==
LOC: ER 01:30
DX: O20.0 Threatened abortion (principal)
CPT/HCPCS: 36415; 76817; 80048; 81003; 81025; 84702; 84703; 85025; 86900; 86901; 99283

== ENCOUNTER 2022-03-18 20:42 | Emergency (ER) | payer OTHER ==
--- OUTSIDE RECORDS SUMMARY | 2022-03-18 20:45 | XMS REPORT | Continuity of Care Document ---
:2000 Author Organization [facility] t Address [address] [place] [address] Care Team Providers Name Role Phone PCP, PATIENT DOES NOT HAVE A Primary Care Physician Drew Rachel Attending Clinician Unavailable Simran LEES Attending Clinician Unavailable Daryl NATH R Attending Clinician Payers Payer Name Policy Type Policy Number Effective Date Expiration Date [facility] [id number] 2022 [facility] MEDICAID 00:00:[address] [facility] [id number] 2021 00:00:00 Problems Condition Condition Condition Status Onset Resolution Last Treating Co mments Source Name Details Category Date Date Treatment Clinician Date Encounter Encounter Disease Active Uni vers for for 2-14 ity of surveillan surve[place] 00:[place] ce of ce of 00 Medical other other Branch contracept contracept karen karen IUD IUD Disease Active Univers (intrauter (intrauter 2-14 it y of ine ine 00:00: [place] device) in device) in [address] Branch Encounter Encounter Disease Active Uni vers for IUD for IUD 2-14 ity of removal removal 00:00: [place] 00 Medical Branch BMI BMI Disease Active Univers 29.0-29.9, 29.0-29.9, 2-14 it y of adult adult 00:00: [place] 00 [facility] Branch Rubella Rubella Disease Active 2017-10 Overview: Univ ers non-immune non-immune 10-14 Formattin ity of status, status, 00:00: g of this [place] antepartum antepartum 00 note Me dical might be Branch different from the original. Address in postpartu m. Allergies, Adverse Reactions, Alerts Allergy Allergy Status Severity Reaction(s) Onset Inactive Treating Comm ents Source Name Type Date Date Clinician NO KNOWN Drug Active Univers ALLERGIE Class ity of S [facility] Social History Social Habit Start Date Stop Date Quantity Comments Source Exposure to Not sure [facility] SARS-CoV-2 [facility] (event) Branch Tobacco use and 2021-11-23 2021-11-23 Never used [facility] y of exposure 00:00:00 00:00:00 [facility] Alcohol intake 2021-11-23 2021-11-23 Current University 00:00:00 00:00:00 non-drinker of [facility] [place] alcohol Branch (finding) Sex Assigned At [birth year] Universit y of 00:00:00 00:00:00 [facility] Smoking Status Start Date Stop Date Source Current some day smoker 2021-11-23 00:00:00 [facility] Medications Ordered Filled Start Stop Current Ordering Indication Dosage Frequency Signature Comments Components Source Medication Medication Date Date Medication? Clinician (SIG) Name Name norgestimat Yes [id number] 1{tbl} Take 1 Univers e-ethinyl 2-15 tablet by ity o f estradioL 00:00: mouth [place] 0.18/0.215/ 00 daily. Medica l 0.25 mg-25 Branch mcg tablet 2017-10 Yes 1{packe Take 1 Univ ers vit 1-02 t} Packet by ity of 33-iron-fol 00:00: mouth [place] ic-dha 00 daily. Medical (SELECT-OB Branch + DHA) 29 mg iron-1 mg -250 mg combo pack Vital Signs Vital Name Observation Time Observation Value Comments Source Systolic blood 2021-11-24 19:58:00 134 mm[Hg] Univer sity of pressure [facility] Diastolic blood 2021-11-24 19:58:00 79 mm[Hg] Unive rsity of pressure [facility] Heart rate 2021-11-24 19:58:00 100 /min [facility] Body temperature 2021-11-24 19:58:00 36.06 [facility]inyere [facility] Res[facility] rate 2021-11-24 19:58:00 20 /min [facility] Body height 2021-11-24 19:58:00 149.9 cm [facility] Body weight 2021-11-24 19:58:00 65.908 kg [facility] BMI 2021-11-24 19:58:00 29.35 kg/m2 [facility] Procedures Procedure Date / Time Performed Performing Clinician Sour e POCT TEST 2021-11-24 00:00:00 Devon Brito [facility] Encounters Start End Encounter Admission Attending Care Care Encounter Source Date/Time Date/Time Type Type Clinicians Facility Department ID 2022-02-22 2022-02-22 Outpatient Drew BRITO [facility] [id number] Univers 15:00:00 15:00:00 DEVON dow o f [facility] 2022-01-06 2022-01-06 Outpatient Drew LEES [facility] [id number] Univers 14:00:00 14:00:00 RENATE [id number] [facility] 2022-01-06 2022-01-06 Outpatient Drew LEES [facility] [id number] Univers 14:00:00 14:00:00 RENATE [facility] 2021-11-24 2021-11-24 Office DarylRUST [id number] Univers 13:30:00 14:58:08 Visit Devon Russell 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 [id number] [id number] Coy as MATERNAL [phone] [facility] ical & CHILD [address] [place] [address] 2021-11-24 2021-11-24 Outpatient Drew BRITO [facility] [id number] Univers 13:30:00 14:58:08 DEVON dow o f [facility] 2021-11-23 2021-11-23 Outpatient R DARYL [facility] [id number] Univers 15:00:00 15:37:11 DEVON ray [facility] Results Test Description Test Time Test Comments Results Result Comments Source POCT TEST 2021-11-24 20:09:00 Test Item Value Reference Range Interpretation Comme nts POCT PREG (test code = 1605) Negative On board controls acceptable with C Line (test code = 3574) Yes POCT PREG LOT # (test code = 3575) POCT PREG TEST DATE (test code = 3576) [facility]
[2022-03-18 21:04] LABS: Urine Blood Negative (Negative); Urine Glucose Negative (Negative); Urine Protein Negative (Negative); Urine Specific Gravity >=1.030 (1.005-1.030)
[2022-03-18] MEDS ORDERED: ACETAMINOPHEN 325 MG TABLET ONE (21:12)
[2022-03-18 21:48] LABS: Urine Bacteria <20 /HPF (<20); Urine Mucus LIGHT /HPF (NONE SEEN); Urine RBC NONE SEEN /HPF (NONE SEEN)
--- NOTE | 2022-03-18 22:38 | EDPHYS ---
Physician Documentation [facility] Name: Ayala Burnett Age: 21 yrs Sex: Female : 2000 Arrival Date: 03/18/2022 Time: 20:44 Bed 6 Private MD: ED Physician Clayton Sunshine HPI: 03/18 20:55 This 21 yrs old Female presents to ER via Ambulatory with complaints of rn Congestion, Sore Throat. 20:55 The patient or guardian reports cough, flu symptoms, low-grade fever, myalgias. Onset: rn The symptoms/episode began/occurred yesterday. Severity of symptoms: At their worst the symptoms were mild, in the emergency department the symptoms are unchanged. Modifying factors: The symptoms are alleviated by nothing, the symptoms are aggravated by nothing. Associated signs and symptoms: Pertinent positives: fever, rhinorrhea, sore throat, Pertinent negatives: chest pain. The patient has not experienced similar symptoms in the past. The patient has not recently seen a physician. Pt reports cough/congestion/myalgias/low back pain for 2 days. just tested positive for COVID yesterday. Went to [facility] and urgent care and they wouldn't accept her insurance for COVID testing. No urinary symptoms. Is , unsure how long, has seen her OB, no u/s. Denies vaginal bleeding or leakage of fluid. Child has similar symptoms as well.. 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 - Social history:: Smoking status: Patient/guardian denies using tobacco, Stopped _ months ago 3. - Family history:: not pertinent. - Hospitalizations: : No recent hospitalization is reported. ROS: 20:58 Constitutional: + fever/chills/myalgias Eyes: Negative for injury, pain, redness, and furnace charger, ENT: + congestion and sore throat Cardiovascular: Negative for chest pain, palpitations, and edema, Respiratory: Negative for shortness of breath, wheezing, and pleuritic chest pain, Abdomen/GI: Negative for abdominal pain, diarrhea, and constipation, Back: + low back pain and myalgias MS/Extremity: Negative for injury and deformity, Skin: Negative for injury, rash, and discoloration, Neuro: Negative for headache, weakness, numbness, tingling, and seizure. Exam: 20:58 Constitutional: This is a well developed, well nourished patient who is awake, alert, rn and in no acute distress. Head/Face: Normocephalic, atraumatic. Eyes: Periorbital areas with no swelling, redness, or edema. Cardiovascular: Tachycardic, regular. No pulse deficits. Respiratory: No increased work of breathing, no retractions or nasal flaring. Abdomen/GI: Soft, non-tender Skin: Warm, dry MS/ Extremity: Pulses equal, no cyanosis Neuro: Awake and alert, GCS 15 Vital Signs: 20:47 BP 133 / 64; Pulse 117; Resp 18; Temp 99.8(O); Pulse Ox 100% ; Weight 67.13 kg; Height tw5 4 ft. 11 in. (149.86 cm); Pain 8/10; 20:47 Body Mass Index 29.89 (67.13 kg, 149.86 cm) tw5 MDM: 20:46 Patient medically screened. rn 22:35 Differential Diagnosis: Bronchitis Influenza Upper Respiratory Infection Viral Syndrome rn Other COVID. Data reviewed: vital signs, nurses notes, lab test result(s), and as a result, I will discharge patient. Counseling: I had a detailed discussion with the patient and/or guardian regarding: the historical points, exam findings, and any diagnostic results supporting the discharge/admit diagnosis, the need for outpatient follow up, to return to the emergency department if symptoms worsen or persist or if there are any questions or concerns that arise at home. Special discussion: I discussed with the patient/guardian in detail that at this point there is no indication for admission to the hospital. It is understood, however, that if the symptoms persist or worsen the patient needs to return immediately for re-evaluation. ED course: COVID +, which was expected, stable vitals, recommend oral rehydration and OB f/u. Paxlovid not FDA approved for women. No oxygen requirement or sob. Will dc home with return precautions.. 03/18 20:55 Order name: COVID-19 SARS RT PCR (Document "Date of Onset" if Symptomatic); Complete tw5 Time: 22:35 03/18 20:55 Order name: Flu; Complete Time: 22:30 tw5 03/18 20:55 Order name: Urine Microscopic Only; Complete Time: 21:50 rn 03/18 21:04 Order name: Urine Dipstick-Ancillary; Complete Time: 21:50 EDGA 03/18 20:55 Order name: Urine Dipstick-Ancillary (obtain specimen); Complete Time: 21:11 tw5 03/18 20:55 Order name: Urine Test (obtain specimen); Complete Time: 21:11 tw5 Administered Medications: 21:11 Drug: Tylenol 650 mg Route: PO; vc1 Disposition Summary: 03/18/22 22:37 Discharge Ordered Location: Home rn Problem: new rn Symptoms: have improved rn Condition: Stable rn Diagnosis - SARS-associated coronavirus as the cause of diseases classified elsewhere rn - Dehydration rn Followup: rn - With: Private Physician - When: As needed - Reason: Recheck today's complaints, Re-evaluation by your physician Discharge Instructions: - Discharge Summary Sheet rn - Dehydration, Adult rn - COVID-19 rn - 10 Things You Can Do to Manage Your COVID-19 Symptoms at Home - [facility] [place] rn - Prevent the Spread of COVID-19 if You Are Sick - [facility] [place] rn Forms: - Medication Reconciliation Form rn - Thank You Letter rn - Antibiotic return agent - Prescription Opioid Use rn Signatures: Dispatcher [employer] Clayton May MD MD rn Wood, Tiffany Sarah Bustillo RN RN vc1 Corrections: (The following items were deleted from the chart) 20:50 20:49 PMHx: "Risk for preeclamsia with previous "; 20:58 20:55 Pt reports cough/congestion/myalgias/low back pain for 2 days. just rn tested positive for COVID yesterday. . rn
--- NOTE | 2022-03-18 22:38 | ER ---
Nurse's Notes [facility] Name: Ayala Burnett Age: 21 yrs Sex: Female : 2000 Arrival Date: 03/18/2022 Time: 20:44 Bed 6 Private MD: Diagnosis: SARS-associated coronavirus as the cause of diseases classified elsewhere;Dehydration Presentation: 03/18 20:47 Chief complaint: Patient states: "Earlier I started feeling really stuffy in my nose tw5 and throat. I had a headache so I took a nap. I woke up with back pain that almost feels like labor pains". Coronavirus screen: Vaccine status: Patient reports being unvaccinated. Ebola Screen: Patient negative for fever greater than or equal to 101.5 degrees Fahrenheit, and additional compatible Ebola Virus Disease symptoms Patient denies exposure to infectious person. Patient denies travel to an Ebola-affected area in the 21 days before illness onset. Initial Sepsis Screen: Does the patient meet any 2 criteria? HR > 90 bpm. Does the patient have a suspected source of infection? No. Patient's initial sepsis screen is negative. Risk Assessment: Do you want to hurt yourself or someone else? Patient reports no desire to harm self or others. Onset of symptoms was March 18, 2022. 20:47 Method Of Arrival: Ambulatory tw5 20:47 Acuity: RENAY 3 tw5 Triage Assessment: 20:49 General: Appears uncomfortable, Behavior is calm, cooperative, appropriate for age. tw5 Pain: Complains of pain in low back area Pain currently is 8 out of 10 on a pain scale. 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 - Social history:: Smoking status: Patient/guardian denies using tobacco, Stopped _ months ago 3. - Family history:: not pertinent. - Hospitalizations: : No recent hospitalization is reported. Screenin:51 Abuse screen: Denies threats or abuse. Denies injuries from another. Nutritional tw5 screening: No deficits noted. Tuberculosis screening: No symptoms or risk factors identified. Fall Risk None identified. Assessment: 21:00 GI: Bowel sounds present X 4 quads. Abd is soft and non tender. vc1 Vital Signs: 20:47 BP 133 / 64; Pulse 117; Resp 18; Temp 99.8(O); Pulse Ox 100% ; Weight 67.13 kg; Height tw5 4 ft. 11 in. (149.86 cm); Pain 8/10; 20:47 Body Mass Index 29.89 (67.13 kg, 149.86 cm) tw5 ED Course: 20:44 Patient arrived in ED. ja2 20:46 Clayton Sunshine MD is Attending Physician. rn 20:49 Triage completed. tw5 20:49 Arm band placed on right wrist. tw5 20:53 Gilda Nguyen, ANNELISE is Primary Nurse. kd3 21:00 Patient has correct armband on for positive identification. Placed in gown. Call light vc1 in reach. 22:59 No provider procedures requiring assistance completed. Patient did not have IV access vc1 during this emergency room visit. Administered Medications: 21:11 Drug: Tylenol 650 mg Route: PO; vc1 Medication: 22:59 VIS not applicable for this client. vc1 Outcome: 22:37 Discharge ordered by . rn 22:59 Discharged to home ambulatory. vc1 22:59 Condition: good 22:59 Discharge instructions given to patient, Instructed on discharge instructions, follow up and referral plans. Demonstrated understanding of instructions, follow-up care. 23:00 Patient left the ED. vc1 Signatures: Clayton Sunshine MD MD rn Alexander, Jessica [facility] Rhona Shook tw5 Gilda Nguyen RN RN 3 Sarah Bustillo RN RN vc1 Corrections: (The following items were deleted from the chart) 20:50 20:49 PMHx: "Risk for preeclamsia with previous "; tw5 tw5
[2022-03-18 23:30] VITALS: BP 133/64; TEMP 99.8; O2SAT 100
== END 2022-03-18 23:00 | disposition home or self-care (01) ==
LOC: ER 20:42
DX: O98.511 Other viral diseases complicating pregnancy, first trimester (principal); U07.1 COVID-19; O99.281 Endocrine, nutritional and metabolic diseases complicating pregnancy, first trimester; E86.0 Dehydration; Z3A.10 10 weeks gestation of pregnancy
CPT/HCPCS: 87804 ×2; 99283; U0003; 81003; 81015

== ENCOUNTER 2022-10-13 03:43 | Inpatient (IN) | payer OTHER ==
--- OUTSIDE RECORDS SUMMARY | 2022-10-13 03:45 | XMS REPORT | Continuity of Care Document ---
:[address] [facility] t Address [address] [place] [address] Care Team Providers Name Role Phone PCP, PATIENT DOES NOT HAVE A Primary Care Physician Unavaila DEVON Weiner Attending Clinician Unavailable RENATE LEES Attending Clinician Unavailable Devon Smith Attending Clinician Doctor Unassigned, [place] Attending Clinician Unavailable Payers Payer Name Policy Type Policy Number Effective Date Expiration Date [facility] [id number] 2022 [facility] MEDICAID 00:00:00 MEDICAID [place] [id number] 2021 00:00:00 Problems Condition Condition Condition Status Onset Resolution Last Treating Co mments Source Name Details Category Date Date Treatment Clinician Date Encounter Encounter Disease Active Uni vers for for 2-14 ity of surve[place] ce of 00 Medical other other Branch contracept contracept karen kraen IUD IUD Disease Active Univers (intrauter (intrauter 2-14 it y of ine ine 00:00: [place] device) in device) in [address] Branch Encounter Encounter Disease Active Uni vers for IUD for IUD 2-14 ity of removal removal 00:00: [place] 00 Medical Branch BMI BMI Disease Active Univers 29.0-29.9, 29.0-29.9, 2-14 it y of adult adult 00:00: [address] Rubella Rubella Disease Active 2017-10 Overview: Univ ers non-immune non-immune 10-14 Formattin ity of status, status, 00:00: g of this [place] antepartum antepartum 00 note Me dical might be Branch different from the original. Address in postpartu m. Allergies, Adverse Reactions, Alerts Allergy Allergy Status Severity Reaction(s) Onset Inactive Treating Comm ents Source Name Type Date Date Clinician NO KNOWN Drug Active Univers ALLERGIE Class ity of S [facility] Social History Social Habit Start Date Stop Date Quantity Comments Source Exposure to Not sure [facility] SARS-CoV-2 [facility] (event) Branch Tobacco use and 2021-11-23 2021-11-23 Never used Universit y of exposure 00:00:00 00:00:00 [facility] Alcohol intake 2021-11-23 2021-11-23 Current [facility] 00:00:00 00:00:00 non-drinker of [facility] alcohol Branch (finding) Sex Assigned At [birth year] Universit y of 00:00:00 00:00:00 [facility] Smoking Status Start Date Stop Date Source Current some day smoker 2021-11-23 00:00:00 [facility] of [facility] Medications Ordered Filled Start Stop Current Ordering Indication Dosage Frequency Signature Comments Components Source Medication Medication Date Date Medication? Clinician (SIG) Name Name norgestimat Yes [id number] 1{tbl} Take 1 Univers e-ethinyl 2-15 tablet by ity o f estradioL 00:00: mouth [place] 0.18/0.215/ 00 daily. Medica l 0.25 mg-25 Branch mcg tablet 2017-10 Yes 1{packe Take 1 Univ ers vit -02 t} Packet by ity of 33-iron-fol 00:00: mouth [place] ic-dha 00 daily. Medical (SELECT-OB Branch + DHA) 29 mg iron-1 mg -250 mg combo pack Vital Signs Vital Name Observation Time Observation Value Comments Source Systolic blood 2021-11-24 19:58:00 134 mm[Hg] Univer sity of pressure [facility] Diastolic blood 2021-11-24 19:58:00 79 mm[Hg] Unive rsity of pressure [facility] Heart rate 2021-11-24 19:58:00 100 /min [facility] Body temperature 2021-11-24 19:58:00 36.06 [facility] Respiratory rate 2021-11-24 19:58:00 20 /min [facility] height 2021-11-24 19:58:00 149.9 cm [facility] Body weight 2021-11-24 19:58:00 65.908 kg [facility] BMI 2021-11-24 19:58:00 29.35 kg/m2 [facility] Procedures Procedure Date / Time Performed Performing Clinician Sour e POCT TEST 2021-11-24 00:00:00 Devon Brito [facility] Encounters Start End Encounter Admission Attending Care Care Encounter Source Date/Time Date/Time Type Type Clinicians Facility Department ID 2022-02-22 2022-02-22 Outpatient Drew BRITO [facility] [id number] Univers 15:00:00 15:00:00 DEVON ray [facility] 2022-02-22 2022-02-22 Outpatient Drew BRITO [facility] [id number] Univers 15:00:00 15:00:00 DEVON ray [facility] 2022-01-06 2022-01-06 Outpatient Drew LEES [facility] [id number] Univers 14:00:00 14:00:[facility]-24 2021-11-24 Office Daryl [facility] [id number] Univers 13:30:00 14:58:08 Visit Devon Russell TISS[facility] RE[id number] [id number] Coy as MATERNAL [id number] [facility] ical & CHILD [address] [place] [address] 2021-11-24 2021-11-24 Outpatient Drew BRITO [facility] [id number] Univers 13:30:00 14:58:08 DEVON dow o cory [facility] 2021-11-24 2021-11-24 Outpatient R DARYL [facility] [id number] Univers 13:30:00 13:30:00 DEVON dow o cory [facility] 2021-11-24 2021-11-24 Outpatient Drew BRITO [facility] [id number] Univers 13:30:00 13:30:00 DEVON dow o [facility] 2021-11-24 2021-11-24 Outpatient R DARYL [facility] [id number] Univers 13:30:00 13:30:00 DEVON dow o [facility] 2021-11-23 2021-11-23 [facility] [id number] Univers 15:00:00 15:37:11 Visit Devon Drew TISSUE REWINDER [id number] ity [facility] [id number] Coy as MATERNAL [id number] [facility] & CHILD [address] [place] [address] 2021-11-23 2021-11-23 Outpatient R DARYL [facility] [id number] Univers 15:00:00 15:37:11 DEVON dow o [facility] 2021-11-23 2021-11-23 Outpatient R DARYL [facility] [id number] Univers 15:00:00 15:37:11 DEVON dwo o [facility] 2021-11-23 2021-11-23 Outpatient R DARYL [facility] [id number] Univers 15:00:00 15:37:11 DEVON dow o [facility] 2021-11-23 2021-11-23 Outpatient R DARYL [facility] [id number] Univers 14:30:00 14:30:00 DEVON dow o [facility] 2021-11-23 2021-11-23 Orders Doctor ANSARI [id number] Univers 00:00:00 00:00:00 Only Unassigned, [place] [id number] [facility] [id number] Coy as [id number] [place] [address] Branch 2021-04-07 2021-04-07 Outpatient R DARYL [facility] [id number] Univers 13:15:00 13:15:00 DEVON ray [facility] Results Test Description Test Time Test Comments Results Result Comments Source POCT TEST 2021-11-24 20:09:00 Test Item Value Reference Range Interpretation Comme nts POCT PREG (test code = 1605) Negative On board controls acceptable with C Line (test code = 3574) Yes POCT PREG LOT # (test code = 3575) POCT PREG TEST DATE (test code = 3576) [facility]
[2022-10-13] MEDS ORDERED: OXYTOCIN/LR 20 UNIT/1,000 ML BAG IV ONE (04:29)
[2022-10-13] MEDS ORDERED: BUTORPHANOL 1 MG/ML INJ IV PRN (04:33)
[2022-10-13] MEDS ORDERED: Ringers Lactate 1,000 ML IV PRN (04:33)
[2022-10-13] MEDS ORDERED: METHYLERGONOVINE 0.2MG/ML AMP IM PRN (04:33)
[2022-10-13] MEDS ORDERED: CARBOPROST TROME 250 MCG/ML IM PRN (04:33)
[2022-10-13] MEDS ORDERED: PROMETHAZINE INJ 25 MG/ML AMP IM PRN (04:33)
[2022-10-13 04:40] LABS: Absolute Lymphocytes (CBC) 2.1 K/uL (0.7-4.9); Hematocrit 34.3 % (36.0-45.0); Lymphocytes % 19.3 % (15.3-44.8); MCV 82.3 fL (80-100); MPV 9.6 fL (7.6-11.3); RBC Red Blood Cell Count 4.17 M/uL (3.86-4.86)
[2022-10-13] MEDS ORDERED: OXYTOCIN/LR 20 UNIT/1,000 ML BAG IV SCH ×2 (05:00→14:00)
[2022-10-13] MEDS ORDERED: Ringers Lactate 1,000 ML IV SCH (05:00)
[2022-10-13 05:13] VITALS: BMI 33.9
[2022-10-13 05:13] LABS: Hepatitis B surface AG Interp. Nonreactive (Nonreactive)
[2022-10-13 05:41] LABS: Specific Gravity 1.009 (1.005-1.030); Urine Bacteria <20 /HPF (<20); Urine Bilirubin NEGATIVE (Negative); Urine Blood Negative (Negative); Urine Clarity Turbid (Clear); Urine Color Light-Yellow (Yellow); Urine Glucose NEGATIVE (Negative); Urine Mucus Slight /HPF (None Seen); Urine Protein TRACE (Negative); Urine RBC 21-50 /HPF (None Seen); Urine Urobilinogen Normal (Normal); Urine Yeast with Hyphae Trace /HPF (None Seen); Urine pH 6.5 (5.0-7.0)
[2022-10-13] MEDS ORDERED: ROPIVACAINE HCL 0.2% 20ML AMP IV ONE (08:11)
[2022-10-13] MEDS ORDERED: BUPIVACAINE 0.25% PF 10 ML VIAL IJ PRN (08:11)
[2022-10-13] MEDS ORDERED: FENTANYL/BUPIVACAINE/NS/PF 200 MCG/100 ML BAG EP PRN (08:11)
[2022-10-13] MEDS ORDERED: FENTANYL CITR 100 MCG/2 ML IV ONE (08:11)
--- NOTE | 2022-10-13 08:20 | PREOPHP ---
Date of Admission: 10/13/2022 History Of Present Illness: A 22-year-old, 4, para 2, at 39 weeks gestation for induction. Pros and cons of this thoroughly discussed prior to admission. Family History: Maternal uncle with hypertension, paternal grandmother with diabetes. Past Medical History: No serious medical illnesses. Past Surgical History: No previous surgeries. Allergies: NO ALLERGIES. Medications: Prior to admission just vitamins and iron. Social History: Does not smoke. Physical Examination: HEENT: Clear. Pupils equal, round, and reactive to light and accommodation. Conjunctivae well perf used. No oral, lingual, or buccal lesions. Chest and Lungs: Clear. Heart: Without murmurs, thrills, heaves, or rubs. Breasts: Without masses. Abdomen: Term size. Extremities: Clear without edema, cyanosis, or clubbing. Assessment And Plan: 3.5 cm, 50% to 60% effaced, vertex well applied, -1 station, rupture of membran es, clear fluid. FHTs normal, reactive. Beta strep is negative. The patient tested positive for CO VID and for influenza A, although she has 0 symptoms. Her testing at home was negative the next day. We will test her again to see what we have, but right now as I said she has 0 symptoms. Full labor talk given. With last delivery, she had an epidural that made her so numb, she could not push the b grace out successfully and vacuum extraction was necessary. Baby was larger though than her first baby . It is another factor. When she gets her epidural today, we will make sure she does not get an extreme dose so that it does not affect her pushing at the time of delivery. KALYAN/MADINA Voice ID: [id number]
[2022-10-13 09:04] LABS: SARS-CoV-2 Antigen Rapid Res Negative (Negative)
--- NOTE | 2022-10-13 12:38 | PN ---
The patient went from 6 to 9 plus. Baby is at +1 station, but she cannot really feel the push. We w ill wait until her sensation returns a little bit. She is on the epidural maintenance dose. If she continues to not be able to feel, we will return to 6 or even turn it off. Baby looks good. Blood p ressure went down a little bit, but she is being hydrated and blood pressure now is back to normal. Had to use vacuum last for delivery, hopefully not this time. The patient is agreeable to letting the epidural wear off slightly so that she can push if needed. KALYAN/MADINA Voice ID: [id number] Report ID: [id number]
[2022-10-13] MEDS ORDERED: Oxycodone HCl/Acetaminophen 1 TAB TAB PO PRN ×2 (13:14)
[2022-10-13] MEDS ORDERED: BISACODYL 10 MG RECTAL SUPP RC PRN (13:14)
[2022-10-13] MEDS ORDERED: DOCUSATE NA/SENNA CONC 1 TAB PO PRN (13:14)
[2022-10-13] MEDS ORDERED: DIPHENHYDRAMINE 25 MG TAB/CAP PO PRN (13:14)
[2022-10-13] MEDS ORDERED: ACETAMINOPHEN 500 MG TAB PO PRN (13:14)
--- NOTE | 2022-10-13 15:11 | OP ---
Surgeon: Abdirahman Russell MD Indications: This is a 22-year-old 4, para 2, 39 weeks gestation for induction, 3.5 cm on ad mission. FHT is normal, reactive. The patient had a positive COVID test. However, she is completel y asymptomatic in this morning. The COVID test was negative, and she had done 2 COVID tests at home herself after the positive test here at the hospital and both of them were negative, so I think we karimi ve false positive. Rh positive, immune Rubella, negative strep screen. Requested and received epidu ral anesthesia at approximately 6 cm. This was allowed to gradually wear off, as the patient had vac uum extraction delivery at last delivery and wanted to not do the same this time. Second stage for a bout 40-45 minutes. Spontaneous vaginal delivery of an estimated 7-pound plus female Apgars 8 and 9. No episiotomy. No laceration. Schultze delivery. The placenta was inspected and noted to be inta ct and normal. Uterus contracted down well with IV drip Pitocin. Estimated blood loss 350 cc or les s. Final Diagnoses: Term intrauterine . Labor induction. Vaginal delivery. Epidural anesthe valerie. Positive COVID test converting to negative within the next 48 hours. KALYAN/MADINA Voice ID: [id number] Report ID: [id number]
[2022-10-14 00:09] LABS: RPR (Rapid Plasma Reagin) NON-REACT (NON-REACT)
[2022-10-14] MEDS: IBUPROFEN 600 MG TAB PO PRN ×2 (04:12→13:16)
[2022-10-14] MEDS ORDERED: IBUPROFEN 200 MG TAB PO ONE ×2 (04:13→13:16)
[2022-10-14] MEDS ORDERED: IBUPROFEN 400 MG TAB ONE (04:13)
--- NOTE | 2022-10-14 08:05 | DS ---
Ayala Burnett is a 22-year-old 4, para 2, at 39 weeks came in for elective induction, deliver ed a 7 pounds 14 ounce female after second stage of about 30-45 minutes. Apgars 8 and 9. No episiot daniela. No lacerations. Had epidural anesthesia, but this was allowed to wear off at patient's request , so she can push the baby out. Last we had used vacuum extraction. Schultze delivery of the placenta was inspected and noted to be intact and normal. Less than 350 cc blood loss. Rh posit karen, immune to Rubella. Negative strep. Patient [facility], then went home and did testing herself and was negative and was re-tested her e in the hospital and was negative and at no time did she have any symptoms to whether or not this is a false-positive test or rapid conversion is questionable. In any event, patient has 0 symptoms. Final Diagnoses: Term intrauterine at 39 weeks, labor induction of vaginal delivery. Epid ural anesthesia. Positive COVID in the hospital, converting to negative. Tdap and flu shots offered. Patient also requested tramadol for analgesia. She is , kn ows this goes through the breast milk and take this medication judiciously. KALYAN/MADINA Voice ID: [id number] Report ID: [id number]
[2022-10-14] MEDS ORDERED: TDAP (DIPHTH,PERTUSS(ACELL),TET VAC) 0.5 ML VIAL IMVAC ONE ×2 (13:00→13:16)
[2022-10-14 13:22] VITALS: TEMP 97.1
[2022-10-14 14:25] VITALS: BP 103/61
== END 2022-10-14 14:40 | disposition home or self-care (01) | DRG 805 ==
LOC: 2ND-WC 03:43
PROVIDERS: ADMIT Specialist; ATTEND Specialist
PROC: 10E0XZZ Delivery of Products of Conception, External Approach (ICD-10-PCS; principal; 2022-10-13)
DX: O98.52 Other viral diseases complicating childbirth (principal); U07.1 COVID-19; Z37.0 Single live birth; O36.0930 Maternal care for other rhesus isoimmunization, third trimester, not applicable or unspecified; J10.1 Influenza due to other identified influenza virus with other respiratory manifestations; Z23 Encounter for immunization; Z3A.39 39 weeks gestation of pregnancy
CPT/HCPCS: 36415; 81001; 85025; 86592; 86901; 87086; 87088; 87340; 87811; G0433; J2210; J2590; J3010; J7120; U0003

== ENCOUNTER 2023-08-23 15:51 | Emergency (ER) | payer OTHER ==
--- OUTSIDE RECORDS SUMMARY | 2023-08-23 15:55 | XMS REPORT | Continuity of Care Document ---
:2000 Author Organization [facility] t Address [address] [facility] [address] [place] [address] Care Team Providers Name Role Phone PCP, PATIENT DOES NOT HAVE A Primary Care Physician Unavaila DEVON Weiner Attending Clinician Unavailable RENATE LEES Attending Clinician Unavailable Devon Smith Attending Clinician Doctor Unassigned, [place] Attending Clinician Unavailable Payers Payer Name Policy Type Policy Number Effective Date Expiration Date [facility] [id number] 2022 [facility] MEDICAID 00:00:00 [place] [id number] 2021 00:00:00 Problems Condition Condition Condition Status [...] 00:00: [place] device) in device) in [address] Branch Encounter Encounter Disease Active Uni vers for IUD for IUD 2-14 ity of removal removal 00:00: [place] 00 [facility] BMI BMI Disease Active Univers 29.0-29.9, 29.0-29.9, 2-14 it y of adult adult 00:00: [address] Rubella Rubella Disease Active 2017-10 Overview: Univ ers non-immune non-immune 10-14 Formattin ity of status, status, 00:00: g of this [place] antepartum antepartum 00 note Me dical might [...] Quantity Comments Source Exposure to Not sure [facility] SARS-CoV-2 [facility] (event) Branch Tobacco use and 2021-11-23 2021-11-23 Never used Universit y of exposure 00:00:00 00:00:00 [facility] Alcohol intake 2021-11-23 2021-11-23 Current [facility] 00:00:00 00:00:00 non-drinker of [facility] alcohol Branch (finding) Sex Assigned At [birth year] Universit y of 00:00:00 00:00:00 [facility] Smoking Status Start Date Stop Date Source Current some day smoker 2021-11-23 00:00:00 [facility] Medications Ordered Filled Start Stop Current Ordering Indication Dosage Frequency Signature Comments Components Source Medication Medication Date Date Medication? Clinician (SIG) Name Name norgestimat Yes [id number] 1{tbl} Take 1 Univers e-ethinyl 2-15 tablet by ity o f estradioL 00:00: mouth [place] 0.18/0.215/ 00 daily. Medica l 0.25 mg-25 [...] 2021-11-24 19:58:00 79 mm[Hg] Unive rsity of [facility] Heart rate 2021-11-24 19:58:00 100 /min [facility] Body temperature 2021-11-24 19:58:00 36.06 Chinyere [facility] Respiratory rate 2021-11-24 19:58:00 20 /[facility] height 2021-11-24 19:58:00 149.9 cm [facility] Body weight 2021-11-24 19:58:00 65.908 kg [facility] BMI 2021-11-24 19:58:00 29.35 kg/m2 [facility] Procedures Procedure Date / Time Performed Performing Clinician Sourc e POCT TEST 2021-11-24 00:00:00 Devon Brito [facility] Encounters Start End Encounter Admission Attending Care Care Encounter Source Date/Time Date/Time Type Type Clinicians Facility Department ID 2022-02-22 2022-02-22 Outpatient Drew BRITO [facility] [id number] Univers 15:00:00 15:00:00 DEVON ray [facility] 2022-02-22 2022-02-22 Outpatient Drew BRITO [facility] [id number] Univers 15:00:00 15:00:00 DEVON ray [facility] 2022-01-06 2022-01-06 Outpatient Drew LEES [facility] [id number] Univers 14:00:00 14:00:00 [facility] 2021-11-24 2021-11-24 Office Ana Paula [facility] [id number] Univers 13:30:00 14:58:08 Visit Devon Russell [id number] [id number] Coy as MATERNAL [phone] Med ical & CHILD [address] [place] [address] 2021-11-24 2021-11-24 Outpatient Drew BRITO [facility] [id number] Univers 13:30:00 14:58:08 DEVON dow o cory [facility] 2021-11-24 2021-11-24 Outpatient R ANA PAULA [facility] [id number] Univers 13:30:00 13:30:00 DEVON dow o cory [facility] 2021-11-24 2021-11-24 Outpatient R ANA PAULA [facility] [id number] Univers 13:30:00 13:30:00 DEVON dow o [facility] 2021-11-24 2021-11-24 Outpatient R ANA PAULA [facility] [id number] Univers 13:30:00 13:30:00 DEVON dow o [facility] 2021-11-23 2021-11-23 [facility] [id number] Univers 15:00:00 15:37:11 Visit Devon Drew [employer] [id number] ity [facility] [id number] Coy as MATERNAL [phone] [facility] [address] [place] [address] 2021-11-23 2021-11-23 Outpatient R ANA PAULA [facility] [id number] Univers 15:00:00 15:37:11 JULIANOA paloma o [facility] 2021-11-23 2021-11-23 Outpatient R ANA PAULA [facility] [id number] Univers 15:00:00 15:37:11 JULIANOA paloma o [facility] 2021-11-23 2021-11-23 Outpatient R ANA PAULA [facility] [id number] Univers 15:00:00 15:37:11 DEVON itluis m o [facility] 2021-11-23 2021-11-23 Outpatient R ANA PAULA [facility] [id number] Univers 14:30:00 14:30:00 JULIANOA paloma o [facility] 2021-11-23 2021-11-23 Orders Doctor ANSARI [id number] Univers 00:00:00 00:00:00 Only Unassigned, [place] [id number] ity of [facility] [id number] [facility] as [phone] [place] [address] Branch 2021-04-07 2021-04-07 Outpatient Drew BRITO [facility] [id number] Univers 13:15:00 13:15:00 DEVON ray [place] [...] PREG TEST DATE (test code = 3576) [facility]
[2023-08-23 16:22] LABS: Absolute Lymphocytes (CBC) 1.7 K/uL (0.7-4.9); Hematocrit 42.7 % (36.0-45.0); Lymphocytes % 12.2 % (15.3-44.8); MCV 81.6 fL (80-100); MPV 8.8 fL (7.6-11.3); Platelets 236 thou/uL (152-406); RBC Red Blood Cell Count 5.23 M/uL (3.86-4.86)
[2023-08-23] MEDS ORDERED: KETOROLAC 30 MG/ML INJ ONE (16:34)
[2023-08-23 16:44] LABS: Potassium 3.5 mEq/L (3.5-5.1); Troponin High Sensitivity 3.7 pg/mL (<58.9)
--- NOTE | 2023-08-23 17:06 | RAD REPORT ---
EXAM DESCRIPTION: Genevieve Single View08/23/2023 4:32 pm CLINICAL HISTORY: CHEST PAIN COMPARISON: CHEST PA AND LAT 2 VIEW dated 07/20/2011 TECHNIQUE: Portable AP view of the chest. FINDINGS: The lungs are clear. No pneumothorax or effusion. The cardiomediastinal contours are unre markable. IMPRESSION: No acute cardiopulmonary process.
--- NOTE | 2023-08-23 17:21 | ER ---
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 Coronavirus screen: At this time, the client does not indicate any symptoms associated with coronavirus-19. Ebola Screen: No symptoms or risks identified at this time. Initial Sepsis Screen: Does the patient meet any 2 criteria? No. Patient's initial sepsis screen is negative. Does the patient have a suspected source of infection? No. Patient's initial sepsis screen is negative. Risk Assessment: Do you want to hurt yourself or someone else? Patient reports no desire to harm self or others. Onset of symptoms was August 23, 2023. 16:04 Method Of Arrival: Ambulatory hb 16:04 Acuity: RENAY 3 hb Historical: - Allergies: 16:05 No Known Allergies; hb - Home Meds: 16:05 None [Active]; hb - PMHx: 16:05 None; hb - PSHx: 16:05 None; hb - Immunization history:: Adult Immunizations up to date. - Social history:: Smoking status: Patient denies any tobacco usage or history of. Screenin:17 [facility] ED Fall Risk Assessment (Adult) History of falling in the last 3 months, mb9 including since admission No falls in past 3 months (0 pts) Confusion or Disorientation No (0 pts) Intoxicated or Sedated No (0 pts) Impaired Gait No (0 pts) Mobility Assist Device Used No (0 pt) Altered Elimination No (0 pt) Score/Fall Risk Level 0 - 2 = Low Risk Oriented to surroundings, Maintained a safe environment, Educated pt \T\ family on fall prevention, incl call for assistance when getting out of bed. Abuse screen: Denies threats or abuse. Nutritional screening: No deficits noted. Tuberculosis screening: No symptoms or risk factors identified. Assessment: 16:16 General: Appears uncomfortable, Behavior is calm, cooperative. Pain: Complains of pain mb9 in chest Pain radiates to abdomen Pain currently is 8 out of 10 on a pain scale. Quality of pain is described as heavy, pressure, Pain began suddenly, Is continuous. Neuro: Padron Agitation-Sedation Scale (RASS): 0 - Alert and Calm Level of Consciousness is awake, alert, obeys commands, Oriented to person, place, time, situation, Appropriate for age. Cardiovascular: Reports chest pain, shortness of breath, Heart tones S1 S2 present Patient's skin is warm and dry. Respiratory: Airway is patent Respiratory effort is even, unlabored, Respiratory pattern is regular, symmetrical, Breath sounds are clear bilaterally. GI: Abdomen is flat, non-distended, Bowel sounds present X 4 quads. Abd is soft and non tender X 4 quads. : No signs and/or symptoms were reported regarding the genitourinary system. EENT: No signs and/or symptoms were reported regarding the EENT system. Derm: Skin is pink, warm \T\ dry. Musculoskeletal: Range of motion: intact in all extremities. Vital Signs: 16:00 BP 108 / 83; Pulse 82; Resp 16; Pulse Ox 99% ; ko1 16:04 BP 115 / 84; Pulse 84; Resp 16; Temp 98.1(O); Pulse Ox 100% on R/A; Weight 58.97 kg; hb Height 4 ft. 11 in. ; Pain 7/10; 17:00 BP 115 / 74; Pulse 84; Resp 18; Pulse Ox 99% ; ko1 16:04 Body Mass Index 26.26 (58.97 kg, 149.86 cm) hb 16:04 Pain Scale: Adult hb ED Course: 15:56 Patient arrived in ED. kj1 15:57 Rolando Mcfadden MD is Attending Physician. ec2 16:00 Denisse Posey RN is Primary Nurse. mb9 16:05 Triage completed. hb 16:05 Arm band placed on. hb 16:16 Basic Metabolic Panel Sent. mb9 16:16 CBC with Diff Sent. mb9 16:16 Troponin HS Sent. mb9 16:16 EKG done, by ED staff, reviewed by Rolando Mcfadden MD. Inserted saline lock: 20 gauge in mb9 right antecubital area, using aseptic technique. 16:17 Placed in gown. Bed in low position. Call light in reach. Side rails up X 1. Client mb9 placed on continuous cardiac and pulse oximetry monitoring. NIBP monitoring applied. court recording monitor on. Door closed. Noise minimized. Warm blanket given. 16:17 No provider procedures requiring assistance completed. mb9 16:20 Patient maintains SpO2 saturation greater than 95% on room air. ko1 16:31 Report given to ANNELISE Coker. mb9 16:33 XRAY Chest (1 view) In Process Unspecified. EDMS 17:00 Provided Education on: na. ko1 17:05 Chio Jolly [facility]-C [facility]. kb 17:31 IV discontinued, intact, bleeding controlled, No redness/swelling at site. Pressure ko1 dressing applied. Administered Medications: 16:56 Drug: Ketorolac IVP 30 mg IVP once Route: IVP; Site: right antecubital; hb 17:24 Follow up: Response: Medication administered at discharge. hb 17:23 Drug: Diazepam IVP 2 mg IVP once Route: IVP; Site: right antecubital; hb Medication: 16:17 VIS not applicable for this client. mb9 Outcome: 17:21 Discharge ordered by . kb 17:31 Discharged to home ambulatory, with family, ko1 17:31 Condition: improved 17:31 Discharge instructions given to patient, family, Instructed on discharge instructions, follow up and referral plans. medication usage, Demonstrated understanding of instructions, follow-up care, medications, Prescriptions given X 2, 17:37 Patient left the ED. ko1 Signatures: Dispatcher [employer] EDDC Chio Jolly FNP-C FNP-Ckb Baxter, Heather, RN RN Lisa Jolly kj1 Jacqui Gonzalez RN RN ko1 Denisse Posey RN RN mb9 Rolando Mcfadden MD MD ec2
--- NOTE | 2023-08-23 17:21 | EDPHYS ---
Physician Documentation [facility] Name: Ayala Burnett Age: 23 yrs Sex: Female : 2000 Arrival Date: 08/23/2023 Time: 15:51 Bed 5 Private MD: ED Physician Rolando Mcfadden HPI: 08/23 16:09 This 23 yrs old Female presents to ER via Ambulatory with complaints of Chest ec2 Pain. 16:09 Patient arrives today for evaluation of chest pain. Patient reports that she was ec2 watching TV where she felt right-sided chest pain. States that the pain is worse with movement and pressing on the area. Patient reports that she has no difficulty breathing, has not noted any leg swelling. Reports no significant medical problems. Denies any recent infectious symptoms.. Historical: - Allergies: 16:05 No Known Allergies; hb - Home Meds: 16:05 None [Active]; hb - PMHx: 16:05 None; hb - PSHx: 16:05 None; hb - Immunization history:: Adult Immunizations up to date. - Social history:: Smoking status: Patient denies any tobacco usage or history of. ROS: 16:09 Constitutional: as per hpi ec2 Exam: 16:09 Constitutional: GEN: NAD Head: atraumatic Eyes: EOMI Ears: External ears are ec2 normal. CV: regular rate LUNGS: no respiratory distress ABD: non-distended SKIN: no evidence of rashes MSK: Performed under nurse supervision, reproducible right-sided chest wall TTP, no crepitus or deformities noted. NEURO: moves all extremities equally Vital Signs: 16:00 BP 108 / 83; Pulse 82; Resp 16; Pulse Ox 99% ; ko1 16:04 BP 115 / 84; Pulse 84; Resp 16; Temp 98.1(O); Pulse Ox 100% on R/A; Weight 58.97 kg; hb Height 4 ft. 11 in. ; Pain 7/10; 17:00 BP 115 / 74; Pulse 84; Resp 18; Pulse Ox 99% ; ko1 16:04 Body Mass Index 26.26 (58.97 kg, 149.86 cm) hb 16:04 Pain Scale: Adult hb MDM: 16:03 Patient medically screened. ec2 16:09 Data reviewed: vital signs. ED course: Patient arrives today due to concern for ec2 right-sided chest pain. Examination remarkable for reproducible right-sided chest wall TTP. Will obtain EKG, lab work, chest x-ray. Currently considering MSK pain, low suspicion for PE or ACS. . 16:12 ED course: EKG independently reviewed and interpreted by me, shows normal sinus rhythm, ec2 rate of 79, no acute ST segment elevations, nonconcerning intervals.. 16:46 ED course: Metabolic profile with appropriate electrolytes and renal function. CBC ec2 shows slight leukocytosis with a WBC of 14. Troponin is within normal ranges. testing negative. . 16:47 ED course: Chest x-ray independently reviewed and interpreted by me, shows no acute ec2 intrathoracic process.. 17:20 Counseling: I had a detailed discussion with the patient and/or guardian regarding the kb historical points, exam findings, and any diagnostic results supporting the discharge/admit diagnosis, lab results, radiology results, the need for outpatient follow up, a family practitioner, to return to the emergency department if symptoms worsen or persist or if there are any questions or concerns that arise at home. 17:21 Response to treatment: the patient's symptoms have resolved after treatment. kb 08/23 16:08 Order name: Basic Metabolic Panel; Complete Time: 16:46 ec2 08/23 16:08 Order name: CBC with Diff; Complete Time: 16:46 ec2 08/23 16:08 Order name: Troponin HS; Complete Time: 16:46 ec2 08/23 16:08 Order name: Test, Urine; Complete Time: 16:46 ec2 08/23 16:08 Order name: XRAY Chest (1 view); Complete Time: 17:07 ec2 08/23 16:08 Order name: EKG; Complete Time: 16:09 ec2 08/23 16:08 Order name: Cardiac monitoring; Complete Time: 16:15 ec2 08/23 16:08 Order name: EKG - Nurse/Tech; Complete Time: 16:15 ec2 08/23 16:08 Order name: IV Saline Lock; Complete Time: 16:15 ec2 08/23 16:08 Order name: Labs collected and sent; Complete Time: 16:15 ec2 08/23 16:08 Order name: O2 Per Protocol; Complete Time: 16:15 ec2 08/23 16:08 Order name: O2 Sat Monitoring; Complete Time: 16:16 ec2 Administered Medications: 16:56 Drug: Ketorolac IVP 30 mg IVP once Route: IVP; Site: right antecubital; hb 17:24 Follow up: Response: Medication administered at discharge. hb 17:23 Drug: Diazepam IVP 2 mg IVP once Route: IVP; Site: right antecubital; hb Disposition Summary: 08/23/23 17:21 Discharge Ordered Notes: Location: Home kb Condition: Stable kb Diagnosis - Chest pain, unspecified - chest wall pain kb Followup: kb - With: Emergency Department - When: As needed - Reason: Worsening of condition Followup: kb - With: Private Physician - When: 2 - 3 days - Reason: Recheck today's complaints, Continuance of care, Re-evaluation by your physician Discharge Instructions: - Discharge Summary Sheet kb - Nonspecific Chest Pain, Adult, [id number] kb Forms: - Medication Reconciliation Form kb - Thank You Letter kb - Antibiotic Education kb - Prescription Opioid Use kb - Patient Portal Instructions kb - Leadership Thank You Letter kb Prescriptions: - Diclofenac Sodium 75 mg Oral tablet, delayed release (enteric coated) - take 1 tablet ORAL route 2 times per day As needed; 30 tablet; Refills: 0, kb Product Selection Permitted - orphenadrine citrate 100 mg Oral Tablet Sustained Release - take 1 tablet ORAL route 2 times per day As needed; 20 tablet; Refills: 0, kb Product Selection Permitted Addendum: 08/24/2023 17:55 I was immediately available for consultation during this patient's visit. I did not e c2 personally see the patient or guide the patient's care.. Signatures: Dispatcher [employer] Chio Stallings, PORTILLO-C SPIN TANK TENDER-Sheela Smith, ANNELISE RN Rolando Mcfadden MD MD ec2
[2023-08-23] MEDS ORDERED: DIAZEPAM 10 MG/2 ML INJ SYRINGE ONE (17:29)
[2023-08-23 18:16] VITALS: TEMP 98.1
[2023-08-23 18:18] VITALS: BP 115/74; O2SAT 99
--- NOTE | 2023-08-24 17:22 | EKG ---
Test Date: 2023-08-23 Test Time: 16:04:17 Director Hospice Operations: MB MEASUREMENT RESULTS: Intervals: Rate: 79 MA: 122 QRSD: 84 QT: 414 QTc: 474 [place]: P: 54 MA: 122 QRS: 69 T: 35 INTERPRETIVE STATEMENTS: Normal sinus rhythm Normal ECG Compared to ECG 07/20/2011 13:45:52 No significant changes Electronically Signed On 08-24-23 17:20:08 BOTTOM SPRAYER by Everett Delgado
== END 2023-08-23 17:37 | disposition home or self-care (01) ==
LOC: ER 15:51
DX: R07.89 Other chest pain (principal)
CPT/HCPCS: 93005; 85025; 80048; 36415; 81025; 84484; 71045; 96375; 96374; 99285; J3360